=== PATIENT | male | born 1985 | race Caucasian/White ===

== ENCOUNTER 2017-05-28 10:35 | Day surgery (SDC) | payer OTHER ==
[2017-05-28] MEDS ORDERED: ACETAMINOPHEN 1,000 MG/100 ML 100 ML IV ONE (10:51)
[2017-05-28] MEDS ORDERED: ceFAZolin 2 GM/50 ML 50 ML IV ONE (10:52)
[2017-05-28] MEDS ORDERED: LACTATED RINGERS 1,000 ML IV ONE (11:00)
[2017-05-28] MEDS ORDERED: fentaNYL 100 MCG/2 ML VIAL IVP ONE (15:24)
[2017-05-28] MEDS ORDERED: DEXAMETHASONE 4 MG/ML VIAL IVP ONE (15:24)
[2017-05-28] MEDS ORDERED: MIDAZOLAM 2 MG/2 ML VIAL IVP ONE (15:24)
[2017-05-28] MEDS ORDERED: PROPOFOL 200 MG/20 ML VIAL IVP ONE (15:24)
[2017-05-28] MEDS ORDERED: ONDANSETRON 4 MG/2 ML VIAL IVP ONE (15:24)
[2017-05-28] MEDS ORDERED: LIDOCAINE-MPF 2% 5 ML VIAL IM ONE (15:24)
[2017-05-28] MEDS ORDERED: BUPIVACAINE 0.25% PF 30 ML VIAL SUBQ ONE ×2 (16:05)
[2017-05-28] MEDS: fentaNYL 100 MCG/2 ML VIAL ONE ×2 (17:19→17:32)
[2017-05-28 17:55] VITALS: BP 131/87
[2017-05-28] MEDS ORDERED: oxyCODONE 5 MG TABLET ONE (18:04)
--- NOTE | 2017-05-31 08:44 | OPERATIVE REPORT ---
DATE OF SURGERY: 05/28/2017 00:00:[address] [facility] . PREOPERATIVE DIAGNOSIS: Right tarsal tunnel syndrome. POSTOPERATIVE DIAGNOSIS: Right tarsal tunnel syndrome. OPERATION PERFORMED: Right tarsal tunnel release. PRIMARY SURGEON: Leonor Valdez MD SCOOP DRIVER SURGEON: Winston Javed MD ANESTHESIA PROVIDER: Ruslan Deras CRNA CIRCULATING NURSE: TONY Daigle ANNOUNCER: Geetha Barth CST ANESTHESIA: General via LMA. IV FLUIDS: 500 mL of lactated Ringer's. ESTIMATED BLOOD LOSS: 5 mL. ANTIBIOTICS: 2 grams of Ancef IV. TOURNIQUET: To right thigh at 250 mmHg for 54 minutes. IMPLANTS: None. SPECIMENS: None. COMPLICATIONS: None. INDICATIONS: This is a 31-year-old male who has had right medial foot and ankle pain for approximately 2 years. He has had physical therapy, as well as activity modification, NSAIDs, and corticosteroid injections, without relief of his symptoms. Nerve conduction studies showed tarsal tunnel syndrome. The risks , benefits, indications, and expectations of treatment options were discussed with the patient. The risks of surgery to include, but not limited to, infection , bleeding, damage to neurovascular structures, damage to tendons, the need for additional surgery, persistent or worsened pain, incomplete relief of symptoms, ankle stiffness, deep vein thrombosis, pulmonary embolism, loss of limb, and loss of life were discussed with the patient. All questions were answered, and informed consent was obtained. PROCEDURE: The patient was met in the preoperative hold area on the day of surgery, where we confirmed that we had the correct patient, planned to do the correct procedure, and had the correct extremity, which was the right lower extremity, identified. Prior to the patient receiving any medications, the operative extremity was initialed by the surgeon. The patient was then brought back to the operating room in stable condition and placed supine on the operating room table. All bony prominences were well padded, and sequential compression device was placed on the nonoperative leg. General anesthesia was induced without complication, and an LMA was placed. The right lower extremity was then prepped and draped in the usual sterile fashion. After final draping, additional ChloraPrep was utilized on the operative site. 3 minutes were allowed to elapse to enable the ChloraPrep to dry. We held a surgical time-out, where we confirmed that we had the correct patient, planned to do the correct procedure, and had the correct extremity, which was the right lower extremity, identified. We also confirmed that the patient received preoperative antibiotics, that all necessary gear was in the room and confirmed sterile, and that no members of the operative team had any concerns. We then began by exsanguinating the right lower extremity and inflating the tourniquet to 250 mmHg. We then made an incision extending from posterior to the medial malleolus to the soft point in the heel just distal to the calcaneus. After sharply incising the skin, we obtained hemostasis utilizing bipolar cautery. We then bluntly dissected through the subcutaneous tissue, identifying superficial vessels and cauterized these as we encountered them. We then identified the flexor retinaculum, as well as the proximal portion of the abductor hallucis muscle. We then incised the flexor retinaculum in line with our incision, ensuring that we bluntly dissected above and below the retinaculum to maintain a safe distance from the neurovascular bundle. After fully dividing the flexor retinaculum, we then turned our attention to the fascia of the abductor hallucis. We sharply divided this utilizing dissection scissors. We then in the distal part of our incision identified the fat pad that was between the abductor hallucis and the flexor digitorum brevis, and removed this utilizing a rongeur. The enabled us to visualize the fascia on the inferior surface of the abductor hallucis and to finish dividing the fascia from the inferior aspect. After dividing the fascia of the abductor hallucis, we then divided the lateral bands of the plantar fascia. We then were able to visualize the neurovascular structures in the tarsal tunnel. We ensured that all of the fascia had been divided. We then continued to divide the plantar fascia into the central portion. We then ensured that the [place] passed freely along the course of the neurovascular bundle. The wound was then thoroughly irrigated. The subcuticular layer of the proximal aspect of the wound was closed utilizing 3-0 Vicryl in an interrupted fashion. The skin was then closed utilizing 3-0 nylon in a horizontal mattress fashion. We then injected 10 mL of 0.25% Marcaine without epinephrine about the incision. We then dressed the wound with sterile Xeroform, plain gauze, and Webril. We then deflated the tourniquet to ensure that the toes remained well perfused, which we were. We then placed the patient into a well-padded posterior splint. All sponge counts and needle counts were correct at the conclusion of the case. The patient was awakened from the general anesthesia without complication and taken to the PACU in stable condition. POSTOPERATIVE PLAN: The patient will remain in his splint until he seen back on his first postoperative visit, at which time we will remove the splint and do a wound check. At that time, we will initiate physical therapy. Report edited and signed 06/01/2017 by Leonor Valdez MD. JOB #: [id number] EXT JOB #:[id number]
== END 2017-05-28 10:36 | disposition home or self-care (01) ==
LOC: SDS 10:35
PROVIDERS: ATTEND Orthopaedic Surgery
PROC: 01NG0ZZ Release Tibial Nerve, Open Approach (ICD-10-PCS; principal; 2017-05-28 12:30)
DX: G57.51 Tarsal tunnel syndrome, right lower limb (principal)
CPT/HCPCS: 28035; A9270; J0131; J0690; J7120